=== PATIENT | female | born 1980 | race Caucasian/White ===

== ENCOUNTER 2020-12-01 15:11 | Emergency (ER) | payer OTHER ==
[2020-12-01] MEDS ORDERED: ZPAK PO (18:47)
== END 2020-12-01 19:12 | disposition home or self-care (01) ==
LOC: FER 15:11
DX: J18.9 Pneumonia, unspecified organism (principal); F17.210 Nicotine dependence, cigarettes, uncomplicated; Z20.822 Contact with and (suspected) exposure to COVID-19
CPT/HCPCS: 71046; U0002